=== PATIENT | male | born 1950 | race Caucasian/White ===

== ENCOUNTER 2016-10-22 11:20 | Inpatient (IN) | payer MEDICARE, OTHER ==
[2016-10-22] MEDS ORDERED: ALBUTEROL/IPRATROPIUM 1 VIAL SOL INH ONE (11:26)
[2016-10-22] MEDS ORDERED: ALBUTEROL/IPRATROPIUM 1 VIAL SOL ONE (11:47)
[2016-10-22 12:01] LABS: BASOPHILS % (AUTO) 2 % (0-3); EOSINOPHILS % (AUTO) 2 % (0-9); HEMATOCRIT 32 % (39-53); MEAN CORPUSCULAR HGB CONC 32.6 gm/dl (32.0-36.0); MONOCYTES % (AUTO) 7.6 % (0-12); NEUTROPHILS % (AUTO) 84.4 % (37-80)
[2016-10-22 12:19] LABS: CALCIUM 8.8 mg/dl (8.5-10.1); POTASSIUM 3.7 mMol/L (3.5-5.1)
[2016-10-22 12:59] LABS: ABG PH 7.49 (7.35-7.45)
[2016-10-22] MEDS ORDERED: VANCOMYCIN HCL 500 MG PDS 1,000 MG in SODIUM CHLORIDE 0.9% 250 ML 250 ML IV ONE (13:20)
[2016-10-22] MEDS ORDERED: PIPERACILLIN/TAZOBACT 3.375 GM 3.375 GM in SODIUM CHLORIDE 0.9% 100 ML 100 ML IV ONE (13:21)
[2016-10-22] MEDS ORDERED: VANCOMYCIN HYDROCHLORIDE 500 MG PDS IV ONE (13:30)
[2016-10-22] MEDS ORDERED: HEPARIN 500 Unit PRE-FILL 100 U/ML SOL IV PRN (14:05)
[2016-10-22] MEDS ORDERED: SODIUM CHLORIDE 0.9% 100 ML 100 ML IV ONE ×2 (15:04→20:23)
[2016-10-22] MEDS ORDERED: PIPERACILLIN/TAZOBACT 3.375 GM PDS IV ONE ×2 (15:04→20:22)
[2016-10-22] MEDS ORDERED: ALBUTEROL NEB SOL 2.5MG/3ML 1 VIAL SOL NEB PRN (15:09)
[2016-10-22] MEDS: SODIUM CHLORIDE 0.9% FLUSH 10 ML SOL IV PRN ×2 (15:12→21:37)
[2016-10-22] MEDS: ALBUTEROL/IPRATROPIUM 1 VIAL SOL INH SCH ×3 (16:56→20:43)
[2016-10-22] MEDS ORDERED: LORAZEPAM 1 MG PEG PRN (18:40)
[2016-10-22] MEDS ORDERED: SODIUM CHLORIDE 0.9% 50 ML 25 ML IV PRN (19:00)
[2016-10-22] MEDS ORDERED: VANCOMYCIN HCL 500 MG PDS 1,000 MG in SODIUM CHLORIDE 0.9% 250 ML 250 ML IV SCH (19:00)
[2016-10-22] MEDS ORDERED: PIPERACILLIN/TAZOBACT 3.375 GM 3.375 GM in SODIUM CHLORIDE 0.9% 100 ML 100 ML IV SCH (19:00)
[2016-10-22] MEDS: SOLUMEDROL 125 MG/2 ML 125 MG/2 ML PDS IV SCH (20:38)
[2016-10-22] MEDS: FLUOXETINE HYDROCHLORIDE 10 MG CAP PEG SCH (21:32)
[2016-10-22] MEDS: LORAZEPAM 0.5 MG TAB PEG PRN (21:32)
[2016-10-22] MEDS: PIPERACILLIN/TAZOBACT 3.375 GM 3.375 GM in SODIUM CHLORIDE 0.9% 100 ML 100 ML IV SCH (21:35)
[2016-10-23] MEDS ORDERED: SODIUM CHLORIDE 0.9% 250 ML 250 ML IV ONE ×2 (00:42→07:38)
[2016-10-23] MEDS ORDERED: VANCOMYCIN HYDROCHLORIDE 500 MG PDS IV ONE ×2 (00:42→07:36)
[2016-10-23] MEDS: SODIUM CHLORIDE 0.9% FLUSH 10 ML SOL IV PRN ×5 (00:54→20:55)
[2016-10-23] MEDS: VANCOMYCIN HCL 500 MG PDS 1,000 MG in SODIUM CHLORIDE 0.9% 250 ML 250 ML IV SCH ×2 (00:55→13:54)
[2016-10-23] MEDS ORDERED: PIPERACILLIN/TAZOBACT 3.375 GM PDS IV ONE ×2 (01:33→07:39)
[2016-10-23] MEDS ORDERED: SODIUM CHLORIDE 0.9% 100 ML 100 ML IV ONE (01:33)
[2016-10-23] MEDS: SOLUMEDROL 125 MG/2 ML 125 MG/2 ML PDS IV SCH ×4 (02:12→20:55)
[2016-10-23] MEDS: PIPERACILLIN/TAZOBACT 3.375 GM 3.375 GM in SODIUM CHLORIDE 0.9% 100 ML 100 ML IV SCH ×4 (02:17→20:54)
[2016-10-23 07:20] LABS: BASOPHILS % (AUTO) 1 % (0-3); EOSINOPHILS % (AUTO) 0 % (0-9); HEMATOCRIT 29 % (39-53); MEAN CORPUSCULAR HGB CONC 32.5 gm/dl (32.0-36.0); MONOCYTES % (AUTO) 2.9 % (0-12); NEUTROPHILS % (AUTO) 93.7 % (37-80)
[2016-10-23 07:21] LABS: ALBUMIN 1.9 gm/dl (3.4-5.0); CALCIUM 8.9 mg/dl (8.5-10.1); POTASSIUM 4.6 mMol/L (3.5-5.1)
[2016-10-23] MEDS: ENOXAPARIN 40 MG SOL SC SCH (09:30)
[2016-10-23] MEDS: ALBUTEROL/IPRATROPIUM 1 VIAL SOL INH SCH ×4 (09:31→20:55)
[2016-10-23] MEDS: FLUOXETINE HYDROCHLORIDE 10 MG CAP PEG SCH (20:55)
[2016-10-23] MEDS: LORAZEPAM 0.5 MG TAB PEG PRN (20:55)
[2016-10-24] MEDS: SOLUMEDROL 125 MG/2 ML 125 MG/2 ML PDS IV SCH ×4 (01:39→19:52)
[2016-10-24] MEDS: VANCOMYCIN HCL 500 MG PDS 1,000 MG in SODIUM CHLORIDE 0.9% 250 ML 250 ML IV SCH ×2 (01:39→13:11)
[2016-10-24] MEDS: SODIUM CHLORIDE 0.9% FLUSH 10 ML SOL IV PRN ×5 (01:40→20:32)
[2016-10-24] MEDS: PIPERACILLIN/TAZOBACT 3.375 GM 3.375 GM in SODIUM CHLORIDE 0.9% 100 ML 100 ML IV SCH ×4 (02:53→20:32)
[2016-10-24 07:18] LABS: BASOPHILS % (AUTO) 0 % (0-3); EOSINOPHILS % (AUTO) 0 % (0-9); HEMATOCRIT 30 % (39-53); MEAN CORPUSCULAR HGB CONC 33.5 gm/dl (32.0-36.0); MONOCYTES % (AUTO) 3.7 % (0-12); NEUTROPHILS % (AUTO) 93.8 % (37-80)
[2016-10-24 07:28] LABS: CALCIUM 8.8 mg/dl (8.5-10.1); POTASSIUM 4.4 mMol/L (3.5-5.1)
[2016-10-24] MEDS: ENOXAPARIN 40 MG SOL SC SCH (08:59)
[2016-10-24] MEDS: ALBUTEROL/IPRATROPIUM 1 VIAL SOL INH SCH ×4 (09:05→20:37)
[2016-10-24] MEDS ORDERED: SODIUM CHLORIDE 0.9% 250 ML 250 ML IV ONE (13:02)
[2016-10-24] MEDS ORDERED: VANCOMYCIN HYDROCHLORIDE 500 MG PDS IV ONE (13:02)
[2016-10-24] MEDS ORDERED: WATER, STERILE 20 ML 40 ML ONE (13:04)
[2016-10-24] MEDS: LORAZEPAM 0.5 MG TAB PEG PRN (19:53)
[2016-10-24] MEDS: FLUOXETINE HYDROCHLORIDE 10 MG CAP PEG SCH (20:04)
[2016-10-25] MEDS: SODIUM CHLORIDE 0.9% FLUSH 10 ML SOL IV PRN ×5 (00:49→15:59)
[2016-10-25] MEDS: VANCOMYCIN HCL 500 MG PDS 1,000 MG in SODIUM CHLORIDE 0.9% 250 ML 250 ML IV SCH ×2 (00:49→13:54)
[2016-10-25] MEDS: SOLUMEDROL 125 MG/2 ML 125 MG/2 ML PDS IV SCH ×2 (02:15→09:00)
[2016-10-25] MEDS: PIPERACILLIN/TAZOBACT 3.375 GM 3.375 GM in SODIUM CHLORIDE 0.9% 100 ML 100 ML IV SCH ×4 (03:02→21:01)
[2016-10-25 07:23] LABS: CALCIUM 8.6 mg/dl (8.5-10.1); POTASSIUM 4.2 mMol/L (3.5-5.1)
[2016-10-25 07:29] LABS: BASOPHILS % (AUTO) 0 % (0-3); EOSINOPHILS % (AUTO) 0 % (0-9); HEMATOCRIT 31 % (39-53); MEAN CORPUSCULAR HGB CONC 32.8 gm/dl (32.0-36.0); MONOCYTES % (AUTO) 4.3 % (0-12); NEUTROPHILS % (AUTO) 92.3 % (37-80)
[2016-10-25] MEDS: ALBUTEROL/IPRATROPIUM 1 VIAL SOL INH SCH ×4 (08:30→21:05)
[2016-10-25] MEDS: ENOXAPARIN 40 MG SOL SC SCH (08:30)
[2016-10-25] MEDS: PREDNISONE 20 MG TAB PEG SCH (10:06)
[2016-10-25] MEDS: LORAZEPAM 0.5 MG TAB PEG PRN ×2 (10:27→23:13)
[2016-10-25] MEDS: FLUOXETINE HYDROCHLORIDE 10 MG CAP PEG SCH (21:01)
[2016-10-26] MEDS: VANCOMYCIN HCL 500 MG PDS 1,000 MG in SODIUM CHLORIDE 0.9% 250 ML 250 ML IV SCH ×2 (00:53→13:48)
[2016-10-26] MEDS: PIPERACILLIN/TAZOBACT 3.375 GM 3.375 GM in SODIUM CHLORIDE 0.9% 100 ML 100 ML IV SCH ×3 (03:09→14:53)
[2016-10-26] MEDS: ALBUTEROL/IPRATROPIUM 1 VIAL SOL INH SCH (08:48)
[2016-10-26] MEDS ORDERED: FLUCONAZOLE 40 MG/ML SUSP PO SCH (09:00)
[2016-10-26] MEDS: SODIUM CHLORIDE 0.9% FLUSH 10 ML SOL IV PRN ×2 (09:27→13:48)
[2016-10-26 09:37] VITALS: BP 110/66; TEMP 97.5
[2016-10-26] MEDS: ENOXAPARIN 40 MG SOL SC SCH (09:38)
[2016-10-26] MEDS: PREDNISONE 20 MG TAB PEG SCH (10:11)
[2016-10-26] MEDS ORDERED: VANCOMYCIN HYDROCHLORIDE 500 MG PDS IV ONE (13:26)
[2016-10-26 15:36] VITALS: PULSE 82; RESP 28; O2SAT 91
== END 2016-10-26 15:20 | disposition short-term general hospital (02) | DRG 194 ==
LOC: ED 11:20 → ACUTE CARE 14:04 → UNDOADMIN 14:04 → ACUTE CARE 14:05
PROVIDERS: ADMIT Family Medicine; ATTEND Family Medicine
DX: J18.9 Pneumonia, unspecified organism (principal); J18.1 Lobar pneumonia, unspecified organism; C15.9 Malignant neoplasm of esophagus, unspecified; Z93.1 Gastrostomy status; Z87.891 Personal history of nicotine dependence; F32.9 Major depressive disorder, single episode, unspecified; I10 Essential (primary) hypertension
CPT/HCPCS: 36415; 36591; 36600; 71010; 71020; 74230; 80048; 80053; 82803; 85025; 87040; 87070; 87205; 94150; 94640; 94760; 96365; 99283; 99284; 99291; J1650; J2543; J2930; J3370; J7603; J7620